=== PATIENT | male | born 1970 | race African-American/Black ===

== ENCOUNTER 2016-05-05 19:08 | Emergency (ER) | payer OTHER ==
[~2016-05-05] VITALS: Ht 182.9 cm; Wt 125.6 kg
[~2016-05-05 19:08] MED LIST: ATORVASTATIN CA40 MG PO; GLIPIZIDE5 MG PO; LISINOPRIL10 MG PO; METFORMIN HCL500 MG PO; PANTOPRAZOLE SO40 MG PO; PEPCID40 MG PO; PERCOCET 5/31 TABLET PO; ZOFRAN ODT4 MG PO
[2016-05-05 20:41] LABS: POINT-OF-CARE METER ID UU13113800
[2016-05-05] MEDS ORDERED: LEVAQUIN500 MG PO (20:53)
[2016-05-05] MEDS ORDERED: TESSALON PERLE100 MG PO (20:53)
[2016-05-05 21:06] VITALS: BP 126/65
== END 2016-05-05 21:06 | disposition home or self-care (01) ==
LOC: EME 19:08
PROVIDERS: Physician Assistant
DX: J18.0 Bronchopneumonia, unspecified organism (principal); E11.65 Type 2 diabetes mellitus with hyperglycemia; K08.89 Other specified disorders of teeth and supporting structures; K02.9 Dental caries, unspecified; J02.9 Acute pharyngitis, unspecified; I10 Essential (primary) hypertension; E78.5 Hyperlipidemia, unspecified; F17.200 Nicotine dependence, unspecified, uncomplicated
CPT/HCPCS: 71020; 82948; 94640; 99281; 99284